=== PATIENT | female | born 1965 | race Caucasian/White ===

== ENCOUNTER 2019-04-12 17:09 | Emergency (ER) | payer OTHER ==
[2019-04-12] MEDS ORDERED: Ibuprofen 800 MG TAB ONE (17:26)
--- NOTE | 2019-04-12 21:18 | RAD ---
RIGHT FOOT THREE VIEWS: Date: 04-12-2019 FINDINGS: There is a tiny avulsion fracture from the tuberosity of the base of the fifth metatarsal. As there i s overlying soft tissue swelling, I presume it is acute. The remainder of the bones of the foot appeared intact. The toes appear intact. IMPRESSION: Tiny cortical avulsion from the tuberosity at the base of the fifth metatarsal. Code T POS: HOME
== END 2019-04-12 18:10 | disposition home or self-care (01) ==
LOC: BURERS 17:09
DX: S92.351A Displaced fracture of fifth metatarsal bone, right foot, initial encounter for closed fracture (principal); E03.9 Hypothyroidism, unspecified; F32.9 Major depressive disorder, single episode, unspecified; Z79.899 Other long term (current) drug therapy; W55.29XA Other contact with cow, initial encounter